=== PATIENT | male | born 1990 | race Caucasian/White ===

== ENCOUNTER → 2016-08-09 | Outpatient (CLI) | payer BC ==
[~2016-08-09] MED LIST: CIPRO PO; FARXIGA5 MG; FLAGYL PO; FLOMAX0.4 M1 PO; LISINOPRIL PO; LORCET HD CAPSU1 CA1 PO; LORTAB 7.5-5001 TAB PO; METFORMIN; METFORMIN PO; NO MEDICATIONS; PERCOCET 5-3251 TAB PO; PERCOCET5/325 PO; PHENERGAN25 M1 PO; PHENERGAN25 MG PO; ZYRTEC
--- NOTE | ~2016-08-09 | US6 ---
[facility] A Service of [facility] & [facility] & [facility] RADIOLOGY TEXT RESULTS PATIENT: SINA TA LOCATION: [facility] : [birth year] UNIT #: [id number] AGE: [address]: Garett Pacheco MD SEX: M ORDER DR: [id number] [address] [id number] [id number] MR#: [id number] Acc #: [id number] NAME: SINA TA : 1990 SEX: M STUDY DATE/TIME: 08/09/2016 10:17 UNIT: [facility] ROOM: STUDY DESCRIPTION: US Abdominal Limited Attending Physician: Garett Pacheco M.D. Referring Physician: Garett Pacheco M.D. Ordering Physician: Garett Pacheco M.D. Primary Care Physician: Garett Pacheco M.D. MEDICAL IMAGING REPORT This report is preliminary unless electronic signature is present. EXAM Abdominal ultrasound, limited. HISTORY Elevated LFTs for x3 weeks. Complains of nausea off an on for one week. TECHNIQUE Real-time ultrasonography of the right upper quadrant performed. COMPARISON Comparison to CT abdomen and pelvis 11/23/2014. FINDINGS Visualized pancreas unremarkable but much of the pancreas is obscured by bowel gas artifact. The liver is increased in echogenicity and there is attenuation of the sonographic beam. Appearance most consistent with diffuse fatty infiltration. The gallbladder is normal in volume. No gallstones. No pericholecystic fluid. There is no clear indication of gallbladder wall thickening. Right kidney measures 10.94 cm in greatest length. No hydronephrosis or nephrolithiasis. No cystic or solid mass lesion suggested. The liver is enlarged measuring 20.68 cm in greatest length. Portal vein not visualized. Common bile duct not visualized. IMPRESSION 1. Limited examination. The liver is enlarged measuring 20.6 cm in craniocaudal extent. It shows diffuse fatty infiltration. No focal parenchymal abnormality is seen but given limited visualization of hepatic parenchyma, liver could best be further evaluated with CT examination. A prior CT examination in 2014 also showed diffuse fatty infiltration with liver measuring about 18.6 cm in craniocaudal dimension at that time. 2. Gallbladder unremarkable. No biliary ductal dilatation is suggested. [facility]. [facility] A Service of [facility] & [facility] & [facility] RADIOLOGY TEXT RESULTS PATIENT: SINA TA LOCATION: [facility] : [birth year] UNIT #: [id number] AGE: [address]: Garett Pacheco MD SEX: M ORDER DR: Common duct not well visualized. 3. Right kidney normal. 4. Pancreas largely obscured by bowel gas artifact. If it would assist in management, pancreas could be further evaluated with CT. 5. No right upper quadrant fluid collections are seen. Dictated by... Mark Rodriguez M.D. THIS IS AN ELECTRONICALLY VERIFIED REPORT Mark Rodriguez M.D. at 08/11/2016 11:34 AM NAINA/pro TD: 08/10/2016 13:48 JOB #: [id number] MEDICAL IMAGING REPORT Page 1 of 1
== END | disposition home or self-care (01) ==
LOC: SGUS 10:11
DX: R79.89 Other specified abnormal findings of blood chemistry (principal); R16.0 Hepatomegaly, not elsewhere classified
CPT/HCPCS: 76705

== ENCOUNTER 2016-10-26 12:32 | Emergency (ER) | payer BC ==
[~2016-10-26 12:32] MED LIST changes: -FARXIGA5 MG; -METFORMIN; -ZYRTEC
[2016-10-26] MEDS ORDERED: FARXIGA5 MG (12:41)
[2016-10-26] MEDS ORDERED: METFORMIN (12:41)
[2016-10-26] MEDS ORDERED: ZYRTEC (12:42)
[2016-10-26 12:59] LABS: URINE SOURCE CLEAN CATCH
[2016-10-26 13:02] LABS: URINE APPEARANCE CLEAR; URINE BLOOD TRACE-INTACT (NEG); URINE COLOR YELLOW; URINE GLUCOSE 300 MG/DL (NORM); URINE LEUKOCYTE ESTERASE NEG (NEG); URINE NITRATE NEG (NEG); URINE PH 5.5 (5-8); URINE PROTEIN NEG (NEG); URINE UROBILINOGEN 0.2 MG/DL (NORM)
[2016-10-26 13:04] LABS: BASOPHIL# 0.2 X10e3 (0-0.3); BASOPHIL% 1.3 % (0-2.5); DIFF IND NO; EOSINOPHIL# 0.1 X10e3 (0-0.7); EOSINOPHIL% 0.9 % (0.0-7.0); HEMATOCRIT 47.4 % (38.0-50.0); HEMOGLOBIN 15.9 gm/dL (13.0-16.0); LYMPHOCYTE% 28.2 % (17.0-45.0); MEAN CORPUSCULAR HEMOGLOBIN 27.8 PG (28-34); MEAN CORPUSCULAR HGB CONC 33.5 g/dL (30-36); MEAN PLATELET VOLUME 8.1 FL (6.5-11.5); MONOCYTE# 1.2 X10e3 (0-1.0); MONOCYTE% 8.2 % (3.0-12.0); NEUTROPHIL# 8.7 X10e3 (1.5-7.1); NEUTROPHIL% 61.4 % (40-75); PLATELET COUNT 387 X10e3 (140-420); RED BLOOD COUNT 5.71 X10e (3.90-5.60); RED CELL DISTRIBUTION WIDTH 12.6 % (11.0-15.5); WHITE BLOOD COUNT 14.2 X10e3 (4.0-10.5)
[2016-10-26 13:10] LABS: MICRO INDICATED? YES; URINE BILIRUBIN NEG (NEG); URINE KETONE 3+ (NEG)
[2016-10-26 13:14] LABS: AMPHETAMINE NEG (NEG); BARBITURATES NEG (NEG); BENZODIAZEPINES NEG (NEG); COCAINE NEG (NEG); MARIJUANA NEG (NEG); OPIATES NEG (NEG); TRICYCLIC ANTIDEPRESSANTS NEG (NEG); U METHADONE NEG (NEG)
[2016-10-26 13:17] LABS: CULTURE INDICATED? NO; URINE BACTERIA NEG (NEG); URINE RBC 0-2 /[HPF] (0-2); URINE WBC NEG /[HPF] (0-5)
[2016-10-26 13:23] LABS: ALBUMIN SERUM 4.4 g/dL (3.5-5.0); BILIRUBIN, DIRECT 0.1 mg/dL (0.0-0.2); BILIRUBIN,INDIRECT 0.9 mg/dL (0.0-0.9); BUN/CREATININE RATIO 27.77; CALCIUM SERUM 9.5 mg/dL (8.4-10.2); CREATININE SERUM 0.9 mg/dL (0.6-1.4); GLOM FILT RATE Estimated 118.3 mL/min (>60); MAGNESIUM 2.1 mg/dL (1.6-3.0); POTASSIUM 3.7 mmol/L (3.5-5.1); PROTEIN TOTAL SERUM 8.4 g/dL (6.0-8.3)
[2016-10-26 14:28] LABS: ARTERIAL DRAW? NO
== END 2016-10-26 15:18 | disposition home or self-care (01) ==
LOC: SED 12:32
PROVIDERS: Student in an Organized Health Care Education/Training Program
DX: E86.0 Dehydration (principal); E13.10 Other specified diabetes mellitus with ketoacidosis without coma; T50.905A Adverse effect of unspecified drugs, medicaments and biological substances, initial encounter; K21.9 Gastro-esophageal reflux disease without esophagitis; Z87.442 Personal history of urinary calculi
CPT/HCPCS: 36415; 80048; 80076; 80307; 81003; 82150; 82803; 83690; 83735; 85025; 96361; 96374; 99284; J1885; J2405